=== PATIENT | female | born 1955 | race Caucasian/White ===

== ENCOUNTER 2016-12-26 18:17 | Emergency (ER) | payer OTHER ==
[~2016-12-26] VITALS: Ht 162.6 cm; Wt 61.2 kg
[2016-12-26] MEDS ORDERED: AUGMENTIN875 MG PO (20:39)
[2016-12-26] MEDS ORDERED: FLAGYL500 MG PO (20:39)
[2016-12-26 21:00] VITALS: BP 131/82
== END 2016-12-26 21:04 | disposition home or self-care (01) ==
LOC: RME 18:17 → EME 18:17 → RME 21:04
PROC: 3E0234Z Introduction of Serum, Toxoid and Vaccine into Muscle, Percutaneous Approach (ICD-10-PCS; principal; 2016-12-26)
DX: S61.452A Open bite of left hand, initial encounter (principal); L08.9 Local infection of the skin and subcutaneous tissue, unspecified; W54.0XXA Bitten by dog, initial encounter; Z23 Encounter for immunization; Z88.2 Allergy status to sulfonamides; Z88.5 Allergy status to narcotic agent; F17.200 Nicotine dependence, unspecified, uncomplicated
CPT/HCPCS: 99281; 99285; J0696; J7050; S0030

== ENCOUNTER 2016-12-27 11:31 | Emergency (ER) | payer OTHER ==
[~2016-12-27] VITALS: Ht 162.6 cm; Wt 61.1 kg
[~2016-12-27 11:31] MED LIST: AUGMENTIN875 MG PO; FLAGYL500 MG PO
[2016-12-27 11:34] VITALS: BP 112/69
== END 2016-12-27 13:07 | disposition home or self-care (01) ==
LOC: EME 11:31
DX: S61.452D Open bite of left hand, subsequent encounter (principal); W54.0XXD Bitten by dog, subsequent encounter; Z51.89 Encounter for other specified aftercare; M19.90 Unspecified osteoarthritis, unspecified site
CPT/HCPCS: 99281; 99283